=== PATIENT | female | born 1965 ===

== ENCOUNTER 2019-01-30 07:46 | Outpatient (CLI) | payer OTHER ==
[~2019-01-30 07:46] MED LIST: AMBIEN5 MG; LISINOPRIL5 MG PO; PROTONIX40 MG; PROZAC20 MG; RISPERDAL3 MG; VASOTEC2.5 MG; ZANTAC150 M1
== END 2019-01-30 07:47 | disposition home or self-care (01) ==
LOC: SONOGRAMA 07:46
DX: E04.1 Nontoxic single thyroid nodule (principal)